=== PATIENT | female | born 1990 | race Caucasian/White ===

== ENCOUNTER 2023-11-01 14:23 | Emergency (ER) | payer OTHER ==
[2023-11-01 14:59] VITALS: BP 115/74; PULSE 72; RESP 15; TEMP 98.7; BMI 28.2
[2023-11-01 15:04] LABS: HCG,QUALITATIVE URINE Negative
[2023-11-01 15:22] LABS: HEMATOCRIT 41.7 % (32.4-45.2); HEMOGLOBIN 13.8 G/dL (10.7-15.3); MCH 28.5 pg (25.7-33.7); MEAN CELL VOLUME 86.4 fl (80-96); MEAN PLT VOLUME 7.8 fl (7.5-11.1); PLATELET COUNT 268.3 10^3/uL (134-434); RBC 4.83 10^6/uL (3.60-5.2); RDW 14.4 % (11.6-15.6); WHITE BLOOD COUNT 9.1 10^3/uL (4.0-10.8)
[2023-11-01 15:28] LABS: ALBUMIN 4.6 g/dl (3.4-5.0); BILIRUBIN,TOTAL 0.3 mg/dl (0.2-1); CALCIUM 9.7 mg/dl (8.5-10.1); CREATININE 0.9 mg/dl (0.6-1.3); POTASSIUM 4.3 mmol/L (3.5-5.1)
[2023-11-01 15:31] LABS: PLATELET ESTIMATE ADEQUATE
== END 2023-11-01 16:31 | disposition home or self-care (01) ==
LOC: FER 14:23
DX: R10.2 Pelvic and perineal pain (principal); R53.81 Other malaise; Z20.822 Contact with and (suspected) exposure to COVID-19
CPT/HCPCS: 0241U-QW; 36415; 80053; 81003; 84703; 85027; 99283-25

== ENCOUNTER 2023-12-16 16:48 | Emergency (ER) | payer OTHER ==
[2023-12-16 17:17] VITALS: BP 122/85; PULSE 64; RESP 18; TEMP 98.3; BMI 27.4
== END 2023-12-16 18:13 | disposition home or self-care (01) ==
LOC: FER 16:48
DX: R06.02 Shortness of breath (principal); F41.9 Anxiety disorder, unspecified
CPT/HCPCS: 71046-TC-FY; 93005; 99284-25